=== PATIENT | female | born 1950 ===

== ENCOUNTER 2017-08-05 09:01 | Outpatient (CLI) | payer OTHER ==
[~2017-08-05] VITALS: Ht 152.4 cm; Wt 77.1 kg
[2017-08-05] MEDS ORDERED: AYR SALINE NA14.1 GM NASAL (09:51)
== END 2017-08-05 09:15 | disposition home or self-care (01) ==
LOC: OFIC 805 09:01
DX: R49.0 Dysphonia (principal); J31.0 Chronic rhinitis; J37.0 Chronic laryngitis; K14.0 Glossitis; R04.0 Epistaxis; D10.1 Benign neoplasm of tongue

== ENCOUNTER 2020-03-08 12:06 | Outpatient (CLI) | payer OTHER ==
[~2020-03-08 12:06] MED LIST: AYR SALINE NA14.1 GM NASAL
== END 2020-03-08 13:00 | disposition home or self-care (01) ==
LOC: OFIC 805 12:06
PROVIDERS: ATTEND Otolaryngology
DX: J31.0 Chronic rhinitis (principal); R49.0 Dysphonia; J37.0 Chronic laryngitis; K14.0 Glossitis